=== PATIENT | female | born 2000 | race African-American/Black ===

== ENCOUNTER 2019-07-01 23:01 | Emergency (ER) | payer MEDICAID ==
[~2019-07-01] VITALS: Ht 167.6 cm; Wt 57.2 kg
[2019-07-02 00:25] LABS: Urine Bacteria FEW /hpf (None Seen); Urine Blood Negative /uL (Negative); Urine Mucus FEW (None Seen); Urine Specific Gravity 1.017 (1.001-1.035); Urine WBC 14 /hpf (0 - 5)
[2019-07-02 01:25] VITALS: BP 135/67
== END 2019-07-02 01:31 | disposition home or self-care (01) ==
LOC: ER 23:08
DX: O23.41 Unspecified infection of urinary tract in pregnancy, first trimester (principal); Z3A.00 Weeks of gestation of pregnancy not specified
CPT/HCPCS: 81001; 81025

== ENCOUNTER 2019-07-15 09:20 | Emergency (ER) | payer MEDICAID ==
[~2019-07-15] VITALS: Ht 167.6 cm; Wt 60.8 kg
[2019-07-15] MEDS ORDERED: SODIUM CHLORIDE 0.9% 1,000 ML IV ONE (09:42)
[2019-07-15] MEDS ORDERED: PROMETHAZINE HCL 25 MG/ML 1ML IV ONE (09:45)
[2019-07-15 09:57] LABS: Urine Bacteria FEW /hpf (None Seen); Urine Blood Negative /uL (Negative); Urine Mucus FEW (None Seen); Urine Specific Gravity 1.034 (1.001-1.035); Urine WBC 3 /hpf (0 - 5)
[2019-07-15 10:23] LABS: Hematocrit 38.7 % (36.0-46.0); Hemoglobin 13.8 g/dL (12.2-16.2); Mean Corpuscular Hemoglobin 29.6 pg (28.0-32.0); Mean Corpuscular Hgb Conc. 35.7 g/dL (32.0-36.0); Mean Corpuscular Volume 82.9 fL (80.0-100.0); Platelet Count (auto) 340 10^3/uL (140-450); Red Blood Cells 4.66 10^6/uL (4.0-5.20); Red Cell Distribution Width 13.3 % (11.8-14.3); White Blood Cell 8.6 10^3/uL (4.4-10.8)
[2019-07-15 10:27] LABS: Basophils % (manual) 0 (0.0-2.0); Blast Cells 0; Metamyelocytes % 0; Myelocytes % 0; Promyelocytes % 0; Reactive Lymphocytes 0
[2019-07-15] MEDS ORDERED: SODIUM CHLORIDE 0.9% 500 ML IV ONE (11:00)
[2019-07-15 11:04] LABS: Band Neutrophils % (manual) 1; Eosinophils % (manual) 1 (0-7); Lymphocytes % (manual) 81 (10.0-50.0); Monocytes % (manual) 2 (0-12)
[2019-07-15 11:16] LABS: Calcium 9.1 mg/dL (8.5-10.1); Potassium 3.4 mmol/L (3.5-5.1)
[2019-07-15 12:10] VITALS: BP 100/54
== END 2019-07-15 12:15 | disposition home or self-care (01) ==
LOC: ER 09:20
DX: O20.0 Threatened abortion (principal); Z3A.01 Less than 8 weeks gestation of pregnancy
CPT/HCPCS: 36415; 76801; 80048; 81001; 84702; 85007; 85027; 96361; 96374; 99284; J2550; J7030

== ENCOUNTER 2019-07-24 14:41 | Emergency (ER) | payer MEDICAID ==
[~2019-07-24] VITALS: Ht 167.6 cm; Wt 63.5 kg
[2019-07-24 18:24] VITALS: BP 119/71
[2019-07-24] MEDS ORDERED: SODIUM CHLORIDE 0.9% 1,000 ML IV ONE (18:45)
[2019-07-24] MEDS ORDERED: ONDANSETRON ODT 4 MG TAB PO ONE (18:45)
== END 2019-07-24 22:21 | disposition home or self-care (01) ==
LOC: ER 14:41
DX: O23.41 Unspecified infection of urinary tract in pregnancy, first trimester (principal); O21.8 Other vomiting complicating pregnancy; H11.32 Conjunctival hemorrhage, left eye; Z3A.01 Less than 8 weeks gestation of pregnancy
CPT/HCPCS: 96360; 96361; 99283; J7030; Q0162

== ENCOUNTER 2019-08-13 21:31 | Emergency (ER) | payer MEDICAID ==
[~2019-08-13] VITALS: Ht 167.6 cm; Wt 54.4 kg
[2019-08-13 23:29] VITALS: BP 108/69
[2019-08-14 00:15] LABS: Urine Bacteria MOD /hpf (None Seen); Urine Blood Negative /uL (Negative); Urine Mucus FEW (None Seen); Urine Specific Gravity 1.033 (1.001-1.035); Urine WBC 49 /hpf (0 - 5)
== END 2019-08-14 02:18 | disposition left against medical advice (07) ==
LOC: ER 21:35
DX: O21.8 Other vomiting complicating pregnancy (principal); R12 Heartburn; Z3A.10 10 weeks gestation of pregnancy; Z53.21 Procedure and treatment not carried out due to patient leaving prior to being seen by health care provider
CPT/HCPCS: 81001

== ENCOUNTER 2022-03-22 19:11 | Emergency (ER) | payer MEDICAID ==
[~2022-03-22] VITALS: Ht 167.6 cm; Wt 100.0 kg
[2022-03-22 20:45] VITALS: BP 118/68
[2022-03-22 21:18] LABS: Urine Bacteria NONE SEEN /hpf (None Seen); Urine Blood Negative /uL (Negative); Urine Mucus FEW (None Seen); Urine Specific Gravity 1.027 (1.001-1.035); Urine WBC 6 /hpf (0 - 5)
== END 2022-03-22 22:43 | disposition left against medical advice (07) ==
LOC: ER 19:11
DX: O26.891 Other specified pregnancy related conditions, first trimester (principal); R10.31 Right lower quadrant pain; Z3A.00 Weeks of gestation of pregnancy not specified; Z53.21 Procedure and treatment not carried out due to patient leaving prior to being seen by health care provider
CPT/HCPCS: 81001